=== PATIENT | female | born 1945 | race Caucasian/White ===

== ENCOUNTER 2018-09-26 09:29 | Outpatient (REF) | payer MEDICARE, BC, SELFPAY ==
[2018-09-26 22:47] LABS: BUN 14 mg/dL (7-18); CREATININE 1.11 mg/dL (0.55-1.02); Calcium 9.2 mg/dL (8.5-10.1); Chloride 104 mmol/L (98-107); Estimated GFR 48.32 (mL/min/1.73m2); Glucose 84 mg/dL (70-100); Potassium 4.2 mmol/L (3.5-5.1); Sodium 141 mmol/L (136-145)
[2018-09-27 05:13] LABS: Vitamin D 25 Total 60.3 ng/ml (30-100)
== END 2018-09-26 09:49 ==
LOC: NCHCN 09:29
PROVIDERS: PCP Family Medicine; Visit Provider Family Medicine
DX: E87.1 Hypo-osmolality and hyponatremia (principal); E55.9 Vitamin D deficiency, unspecified; M81.0 Age-related osteoporosis without current pathological fracture
CPT/HCPCS: 80048; 82306

== ENCOUNTER 2018-09-26 10:09 | Outpatient (REF) | payer MEDICARE, BC, SELFPAY ==
--- NOTE | 2018-09-26 08:24 | PAPFT_PTH ---
PATIENT: Alicia Cassidy LOC: [facility] U#:[id number] AGE/SX: 73/F ROOM: RE09/26/[address]: Juni Gates : 1945 BED: DIS: 09/26/2018 SPEC #: [id number] RECD: 09/27/18 18:19 STATUS: LEONARDA REDeborah #: [id number] ION: 09/26/18 08:[address]: Juni Gates DEPT: [facility] Cytology RECD BY: Renetta Bassett Tissues: 1 - CX/ENDOCX FOR PAP SMEARS Procedures: PAP THIN PREP/[facility] Screening HPV DNA PROBE Comments: [id number]
== END 2018-09-26 10:29 ==
LOC: NCHCN 10:09
PROVIDERS: PCP Family Medicine; Visit Provider Family Medicine
DX: Z12.4 Encounter for screening for malignant neoplasm of cervix (principal); Z11.51 Encounter for screening for human papillomavirus (HPV)
CPT/HCPCS: 88142; 87624

== ENCOUNTER 2020-01-09 09:38 | Outpatient (REF) | payer MEDICARE, BC, SELFPAY ==
--- NOTE | 2020-01-09 08:24 | PAPFT_PTH ---
PATIENT: Alicia Cassidy LOC: [facility] U#:[id number] AGE/SX: 74/F ROOM: RE01/09/[address]: Juni Gates : 1945 BED: DIS: 01/09/2020 SPEC #: [id number] RECD: 01/10/20 12:59 STATUS: LEONARDA REDeborah #: [id number] ION: 01/09/20 08:[address]: Juni Gates DEPT: [facility] Cytology RECD BY: Renetta Bassett Tissues: 1 - CX/ENDOCX FOR PAP SMEARS Procedures: PAP THIN PREP/[facility] Screening HPV DNA PROBE Comments: [id number]
== END 2020-01-09 09:58 ==
LOC: NCHCN 09:38
PROVIDERS: PCP Family Medicine; Visit Provider Family Medicine
DX: Z12.4 Encounter for screening for malignant neoplasm of cervix (principal)
CPT/HCPCS: 88142; 87624

== ENCOUNTER 2020-12-31 23:31 | Outpatient (REF) | payer MEDICARE, BC, SELFPAY ==
[2020-12-31 14:34] LABS: Vitamin D 25 Total 63.2 ng/ml (30-100)
[2020-12-31 14:56] LABS: Anion Gap 10.9 mmol/L (3-11); BUN 17 mg/dL (7-18); CO2 26.1 mmol/L (21.0-32.0); CREATININE 1.1 mg/dL (0.55-1.02); Calcium 9.8 mg/dL (8.5-10.1); Calculated LDL 146 mg/dL (<100); Chloride 104 mmol/L (98-107); Cholesterol 242 mg/dL (<200); Estimated GFR 48.55 (mL/min/1.73m2); Glucose 86 mg/dL (74-106); HDL Cholesterol 63 mg/dL (40-60); Potassium 4.3 mmol/L (3.5-5.1); Sodium 141 mmol/L (136-145); Triglyceride 169 mg/dL (<150)
== END 2020-12-31 23:32 | disposition home or self-care (01) ==
LOC: NCHCN 23:31
PROVIDERS: PCP Family Medicine; Visit Provider Family Medicine
DX: E78.5 Hyperlipidemia, unspecified (principal); E55.9 Vitamin D deficiency, unspecified
CPT/HCPCS: 80048; 80061; 82306

== ENCOUNTER 2021-07-12 19:25 | Outpatient (REF) | payer MEDICARE, BC, SELFPAY ==
[2021-07-12 14:28] LABS: Anion Gap 9.3 mmol/L (3-11); BUN 16 mg/dL (7-18); CO2 27.7 mmol/L (21.0-32.0); CREATININE 1.1 mg/dL (0.55-1.02); Calcium 9.6 mg/dL (8.5-10.1); Chloride 106 mmol/L (98-107); Estimated GFR 48.42 (mL/min/1.73m2); Glucose 83 mg/dL (74-106); Potassium 4.3 mmol/L (3.5-5.1); Sodium 143 mmol/L (136-145)
== END 2021-07-12 19:26 | disposition home or self-care (01) ==
LOC: NCHCN 19:25
PROVIDERS: PCP Family Medicine; Visit Provider Family Medicine
DX: Z12.39 Encounter for other screening for malignant neoplasm of breast (principal)
CPT/HCPCS: 80048

== ENCOUNTER 2023-03-14 16:46 | Outpatient (REF) | payer MEDICARE, BC, SELFPAY ==
[2023-03-14 21:21] LABS: Anion Gap 5.4 mmol/L (3-11); BUN 14 mg/dL (7-18); CO2 29.6 mmol/L (21.0-32.0); CREATININE 1.3 mg/dL (0.55-1.02); Calcium 9.6 mg/dL (8.5-10.1); Chloride 104 mmol/L (98-107); Estimated GFR 42.62 (mL/min/1.73m2); Glucose 100 mg/dL (74-106); Potassium 4.3 mmol/L (3.5-5.1); Sodium 139 mmol/L (136-145)
== END 2023-03-14 16:47 | disposition home or self-care (01) ==
LOC: NCHCN 16:46
PROVIDERS: PCP Family Medicine; Visit Provider Family Medicine
DX: I10 Essential (primary) hypertension (principal)
CPT/HCPCS: 80048

== ENCOUNTER 2024-05-03 14:16 | Outpatient (REF) | payer MEDICARE, BC, SELFPAY ==
[2024-05-03 15:04] LABS: Anion Gap 5.4 mmol/L (3-11); BUN 16 mg/dL (7-18); CO2 29.6 mmol/L (21.0-32.0); CREATININE 1.3 mg/dL (0.55-1.02); Calcium 9.4 mg/dL (8.5-10.1); Calculated LDL 125 mg/dL (<100); Chloride 107 mmol/L (98-107); Cholesterol 217 mg/dL (<200); Estimated GFR 42.09 (mL/min/1.73m2); Glucose 94 mg/dL (74-106); HDL Cholesterol 58 mg/dL (40-60); Potassium 3.9 mmol/L (3.5-5.1); Sodium 142 mmol/L (136-145); Triglyceride 172 mg/dL (<150)
== END 2024-05-03 14:17 | disposition home or self-care (01) ==
LOC: NCHCN 14:16
PROVIDERS: PCP Family Medicine; Visit Provider Family Medicine
DX: E78.5 Hyperlipidemia, unspecified (principal); N18.30 Chronic kidney disease, stage 3 unspecified
CPT/HCPCS: 80048; 80061

== ENCOUNTER 2024-07-18 16:48 | Outpatient (REF) | payer MEDICARE, BC, SELFPAY ==
[2024-07-18 21:36] LABS: Anion Gap 5.9 mmol/L (3-11); BUN 15 mg/dL (7-18); CO2 30.1 mmol/L (21.0-32.0); CREATININE 1.1 mg/dL (0.55-1.02); Calcium 9.5 mg/dL (8.5-10.1); Chloride 103 mmol/L (98-107); Estimated GFR 51.43 (mL/min/1.73m2); Glucose 116 mg/dL (74-106); Potassium 3.5 mmol/L (3.5-5.1); Sodium 139 mmol/L (136-145)
== END 2024-07-18 16:49 | disposition home or self-care (01) ==
LOC: NCHCN 16:48
PROVIDERS: PCP Family Medicine; Visit Provider Family Medicine
DX: I10 Essential (primary) hypertension (principal)
CPT/HCPCS: 80048

== ENCOUNTER 2025-05-06 14:42 | Outpatient (REF) | payer MEDICARE, BC, SELFPAY ==
[2025-05-06 16:30] LABS: Anion Gap 4.4 mmol/L (3-11); BUN 16 mg/dL (7-18); CO2 29.6 mmol/L (21.0-32.0); CREATININE 1.2 mg/dL (0.55-1.02); Calcium 9.6 mg/dL (8.5-10.1); Calculated LDL 137 mg/dL (<100); Chloride 107 mmol/L (98-107); Cholesterol 227 mg/dL (<200); Estimated GFR 46.05 (mL/min/1.73m2); Glucose 100 mg/dL (74-106); HDL Cholesterol 56 mg/dL (>or=50); Potassium 4.2 mmol/L (3.5-5.1); Sodium 141 mmol/L (136-145); Triglyceride 172 mg/dL (<150)
== END 2025-05-06 14:43 | disposition home or self-care (01) ==
LOC: NCHCN 14:42
PROVIDERS: PCP Family Medicine; Visit Provider Family Medicine
DX: Z00.00 Encounter for general adult medical examination without abnormal findings (principal); E78.49 Other hyperlipidemia
CPT/HCPCS: 80048; 80061